=== PATIENT | male | born 1980 | race Two or more races ===

== ENCOUNTER 2025-10-06 06:20 | Day surgery (SDC) | payer MEDICAID, SELFPAY ==
--- NOTE | 2025-10-02 07:00 | EKG_ITS ---
[facility] Test Date: 2025-10-02 Pat Name: ILEANA MODI Department: Room: - Gender: Male [employer] Supervisor: MIKY : 1980 Requested By: Zana Molina Order Number: [id number] Reading MD: Zana Molina Measurements Intervals [place] Rate: 73 P: 34 PA: 159 QRS: 44 QRSD: 105 T: -3 QT: 382 QTc: 421 Interpretive Statements SINUS RHYTHM NONSPECIFIC T-WAVE ABNORMALITY No previous ECG available for comparison /[id number]
[2025-10-02 11:21] VITALS: BMI 35.7
[2025-10-02 12:07] LABS: Basophils # (Auto) 0.1 Thou/mm3 (0.0-0.2); Basophils % (Auto) 1 % (0-2.5); Eosinophils # (Auto) 0.1 Thou/mm3 (0.0-0.5); Eosinophils % (Auto) 1 % (0-10); Hematocrit 49.3 % (41.0-53.0); Hemoglobin 16.4 g/dL (13.5-16.0); Immature Granulocytes Auto 0.05 Thou/mm3 (0.00-0.00); Lymphocytes # (Auto) 2.2 Thou/mm3 (1.0-4.8); Lymphocytes % (Auto) 24 % (10-50); Mean Corpuscular HGB Conc 33.3 g/dl (31.0-37.0); Mean Corpuscular Hemoglobin 27.9 pg (25.0-35.0); Mean Corpuscular Volume 84 fL (80-100); Monocytes # (Auto) 0.5 Thou/mm3 (0.0-0.8); Monocytes % (Auto) 5 % (0-12); Neutrophils # (Auto) 6.5 Thou/mm3 (1.8-7.7); Neutrophils % (Auto) 69 % (37-80); Nucleated Red Blood Cell # 0.00 Thou/mm3 (0.00-0.00); Nucleated Red Blood Cell % 0 /100 WBC (0); Platelet Count 300 Thou/mm3 (140-440); RDW Standard Deviation 35.9 fL (35.1-43.9); Red Blood Count 5.88 Miln/mm3 (4.50-5.90); White Blood Count 9.3 Thou/mm3 (3.8-10.6)
[2025-10-02 12:22] LABS: Alanine Aminotransferase 47 U/L (10-49); Albumin, Serum 5.0 gm/dL (3.5-5.0); Albumin/Globulin Ratio 1.5 (1.2-2.2); Alkaline Phosphatase 103 U/L (46-116); Anion Gap 10 (7-16); Aspartate Amino Transferase 23 U/L (0-34); BUN/Creatinine Ratio 9 Ratio (12-20); Bilirubin,Total 0.3 mg/dL (0.3-1.2); Blood Urea Nitrogen 9 mg/dL (9-23); Calcium 9.6 mg/dL (8.3-10.6); Calcium (Corrected) 9.6 mg/dL (8.5-10.1); Carbon Dioxide 28.8 mMol/L (20.0-31.0); Chloride 101 mMol/L (98-107); Creatinine (Component) 1.0 mg/dL (0.6-1.3); Estimated Creatinine Clearance 116.3 mL/min (>60); Globulin 3.3 gm/dL (2.3-3.5); Glucose 258 mg/dL (74-106); Osmolality,Calculated 287 (275-295); Potassium 4.7 mMol/L (3.4-5.1); Sodium 140 mMol/L (136-145); Total Protein 8.3 gm/dL (5.7-8.2); eGFR > 60 See Note
--- NOTE | 2025-10-05 11:37 | ESHP_ITS ---
RE: OSCAR MODI : 1980 DATE OF ADMISSION: 10/05/2025 HISTORY OF PRESENT ILLNESS: 44-year-old gentleman with desiring bilateral vasectomy for family planning. He has 5 children. PAST SURGICAL HISTORY: Tonsillectomy. PAST MEDICAL HISTORY: He has history of diabetes mellitus and history of hypertension. ALLERGIES: NONE KNOWN. MEDICATIONS: 1. Lisinopril. 2. Ozempic. 3. PHYSICAL EXAMINATION: HEENT: Normal. NECK: Supple. LUNGS: Clear. HEART: Sounds are normal. ABDOMEN: Soft without any organomegaly. No guarding. No rigidity. EXTREMITIES: Normal. IMPRESSION: Patient desiring bilateral vasectomy for family planning. PLAN: Planned procedure risks and complications have been discussed with the patient. Patient has understood them and agreed to proceed. DT: 11:01:36 TT: 11:35:00 Ref: [id number] - TID: [id number]
[2025-10-06] VITALS (7 sets, daily range): BP systolic 141–177; BP diastolic 91–110; PULSE 74–86; RESP 12–19; TEMP 36.1–36.7; O2SAT 95–97; BMI 35.6
--- NOTE | 2025-10-06 09:09 | SUR.PHASEII ---
0909 patient arrived to recovery resting comfortably in [facility], awake and alert, breathing unlabored, vital signs stable, denies pain and nausea, dressing intact to groin area; sutures, ointment, telfa, fluffs, scrotal support, no bleeding noted, report received from Dr. Martínez and Josue KISER
--- NOTE | 2025-10-06 09:58 | SUR.PHASEII ---
0958 Patient meets discharge criteria from recovery, awake and alert, breathing unlabored, vital signs stable, denies pain and nausea, dressing intact; no bleeding noted, assisted with dressing into his clothing by his , discharge instructions given to patient and his with the assistance of the telephone prospect manager Fabien ID#[id number] due to being Maltese speaking, signed discharge instructions. Patient given all his belongings prior to discharge, transported via wheelchair and left in a private vehicle.
--- NOTE | 2025-10-06 17:36 | ESOP_ITS ---
RE: OSCAR MODI : 1980 DATE OF OPERATION: 10/06/2025 PREOPERATIVE DIAGNOSIS: Patient desiring bilateral vasectomy for family planning. POSTOPERATIVE DIAGNOSIS: Patient desiring bilateral vasectomy for family planning. PROCEDURE PERFORMED: Bilateral vasectomy. ANESTHESIA: Local with monitored anesthesia by Dr. Martínez. INDICATION: Patient is a 44-year-old gentleman desiring bilateral vasectomy for family planning. Planned procedure, risks, and complications have been discussed with the patient. Patient understood them and agreed to proceed. DESCRIPTION OF PROCEDURE: After the patient was brought to the operating table under adequate monitored anesthesia by Dr. Martínez, patient was placed in supine position. Parts were prepped and draped in the usual fashion. Right vas deferens was made subcutaneous. Local anesthetic was injected. A small transverse incision was then made 0.5 cm long over the vas deferens. Dissection was then carried out. A small segment of the vas deferens was identified and was dissected from surrounding structures. Two hemostats were placed. A segment between the hemostats was excised and was sent for histological examination. Ends of the vas deferens were fulgurated and ligated using 3-0 chromic catgut sutures. Complete hemostasis was obtained and the skin wound was closed with interrupted sutures of 3-0 chromic catgut sutures. In a similar fashion, the left-sided vasectomy was done. Local anesthetic was injected. Sterile dressing was then applied and patient was then transferred to the recovery room in a satisfactory condition, having tolerated the entire procedure well. Sponge count and needle count at the end of the procedure was found to be correct. Estimated blood loss was approximately 2 mL. DT: 09:33:53 TT: 17:35:00 Ref: [id number] - TID: [id number]
== END 2025-10-06 09:58 | disposition home or self-care (01) ==
PROVIDERS: Anesthesiology; PCP Family Medicine; Referring Provider Surgery; Visit Provider Surgery
PROC: (CPT 55250; principal; 2025-10-06 08:30)
DX: Z30.2 Encounter for sterilization (principal); Z01.810 Encounter for preprocedural cardiovascular examination
CPT/HCPCS: 55250; 36415; 80048; 80053; 85025; 93005; A4649; J0690; J2250; J3010; J3490; L8330; A9270; J1920